=== PATIENT | male | born 2000 | race Caucasian/White ===

== ENCOUNTER → 2022-10-19 | Outpatient (CLI) | payer BC ==
--- NOTE | 2022-10-19 14:41 | MR ---
EXAMINATION TYPE: MR knee RT wo con DATE OF EXAM: 10/19/2022 COMPARISON: Right femur x-ray November 11, 2011 HISTORY: Inner Pain rt knee, effusion , swelling after basketball injury TECHNIQUE: Multiplanar, multisequence images of the knee is performed without IV contrast. FINDINGS: MEDIAL MENISCUS: Faint irregular increased signal posterior horn extends to inferior articular surfac e sagittal image 8 per reference. LATERAL MENISCUS: Anterior and posterior horns are intact without tear. CRUCIATE LIGAMENTS: The anterior and posterior cruciate ligaments are intact and unremarkable. COLLATERAL LIGAMENTS: The medial collateral ligament and lateral collateral ligament complex are inta ct and unremarkable. EXTENSOR MECHANISM: Visualized quadriceps and patellar tendons are intact. EFFUSION: Small size suprapatellar joint effusion. POPLITEAL CYST: Small size popliteal/ordaz cyst. TRICOMPARTMENT SPACES: Tricompartment joint spaces are maintained. No significant spurring is seen. G rowth plates are closed. CARTILAGE: Tricompartmental articular cartilage is maintained. BONE MARROW SIGNAL: Overall heterogeneity correlates with patient's age. No suspicious focal edema OTHER: There is fluid anterior to the ACL extending anteriorly into deep part of Hoffa's fat pad. IMPRESSION: At least intrasubstance suspected full-thickness tear posterior horn medial meniscus. Sma ll suprapatellar joint effusion and popliteal cyst.
== END | disposition home or self-care (01) ==
LOC: RADMRIMAIN 13:08
PROVIDERS: ATTEND Orthopaedic Surgery Sports Medicine
DX: M25.561 Pain in right knee (principal); M25.461 Effusion, right knee; Y93.67 Activity, basketball